=== PATIENT | female | born 1965 | race American Indian/Alaskan Native ===

== ENCOUNTER 2017-04-04 19:51 | Emergency (ER) | payer BC, OTHER ==
[~2017-04-04] VITALS: Ht 162.6 cm; Wt 96.2 kg
[~2017-04-04 19:51] MED LIST: ASPIR-LOW81 MG PO; ASPIRIN EC325 MG PO; ATORVASTATIN CA80 MG PO; CRESTOR10 MG PO; FENOFIBRATE160 MG PO; FLONASE ALLERG9.9 ML NS; GEMFIBROZIL600 MG PO; GLIPIZIDE ER10 MG PO; JANUVIA100 MG PO; KETOROLAC TROME10 MG PO; LEVOTHYROXINE150 MCG PO; LIPITOR40 MG PO; LIPITOR80 MG PO; METFORMIN HCL500 M1 PO; METFORMIN HCL500 MG PO; NALTREXONE HCL50 MG PO; NICORETTE4 M1 BUCCAL; OMEPRAZOLE20 MG PO; PRINIVIL5 MG PO; PSEUDOEPHEDRIN120 MG PO; ROSUVASTATIN CA10 MG PO; SERTRALINE HCL100 MG PO; SERTRALINE HCL50 MG PO; SYNTHROID175 MCG PO; TRAMADOL HCL50 MG PO; ULTRAM50 MG PO; ZOFRAN ODT8 MG SL; [UNRECOGNIZED DRUG - OTHER] PO
[2017-04-04] MEDS ORDERED: IMITREX25 MG PO (20:09)
--- NOTE | 2017-04-04 22:06 | EKG ---
[facility] [address] [facility] [place] [address] Signed Normal sinus rhythm Inferior infarct (cited on or before 29-MAY-2016) Abnormal ECG When compared with ECG of 29-MAY-2016 15:39, Nonspecific T wave abnormality no longer evident in Lateral leads QT has shortened Confirmed by DEWAYNE INTERIANO MD ([id number]) on 04/04/2017 10:06:21 PM Electronically Signed By: DEWAYNE INTERIANO MD 04/04/17 2206 PATIENT NAME: IDALIA THOMPSON Electrocardiogram DATE OF : 61 PHYSICIAN: DEWAYNE INTERIANO MD REPORT #: [id number] REPORT IS CONFIDENTIAL AND NOT TO BE RELEASED WITHOUT AUTHORIZATION
== END 2017-04-04 22:03 | disposition home or self-care (01) ==
LOC: ED 19:51
DX: R07.89 Other chest pain (principal); E03.9 Hypothyroidism, unspecified; E11.9 Type 2 diabetes mellitus without complications; E66.9 Obesity, unspecified; F43.10 Post-traumatic stress disorder, unspecified; Z86.73 Personal history of transient ischemic attack (TIA), and cerebral infarction without residual deficits; F17.200 Nicotine dependence, unspecified, uncomplicated; Z90.710 Acquired absence of both cervix and uterus; Z88.2 Allergy status to sulfonamides; Z88.5 Allergy status to narcotic agent; Z88.1 Allergy status to other antibiotic agents; Z88.8 Allergy status to other drugs, medicaments and biological substances; Z79.82 Long term (current) use of aspirin; Z79.899 Other long term (current) drug therapy; Z79.84 Long term (current) use of oral hypoglycemic drugs
CPT/HCPCS: 71020; 80053; 84484; 85025; 93005; 93010; 96361; 96374; 99284; J2270; J7030

== ENCOUNTER 2017-08-19 23:38 | Emergency (ER) | payer BC, OTHER ==
[~2017-08-19] VITALS: Ht 162.6 cm; Wt 82.0 kg
[~2017-08-19 23:38] MED LIST changes: +IMITREX25 MG PO
--- NOTE | 2017-08-21 14:48 | EKG ---
[facility] [address] [facility] [place], [place] [address] Signed Normal sinus rhythm Normal ECG When compared with ECG of 04-APR-2017 19:58, No significant change was found Confirmed by DEWAYNE INTERIANO MD ([id number]) on 08/21/2017 2:48:01 PM Electronically Signed By: DEWAYNE INTERIANO MD 08/21/17 1448 PATIENT NAME: IDALIA THOMPSON Electrocardiogram DATE OF : 61 PHYSICIAN: DEWAYNE INTERIANO MD REPORT #: [id number] REPORT IS CONFIDENTIAL AND NOT TO BE RELEASED WITHOUT AUTHORIZATION
== END 2017-08-20 05:20 | disposition home or self-care (01) ==
LOC: ED 23:38
DX: E11.649 Type 2 diabetes mellitus with hypoglycemia without coma (principal); E03.9 Hypothyroidism, unspecified; E66.9 Obesity, unspecified; F17.200 Nicotine dependence, unspecified, uncomplicated; Z86.73 Personal history of transient ischemic attack (TIA), and cerebral infarction without residual deficits; Z90.710 Acquired absence of both cervix and uterus; Z88.2 Allergy status to sulfonamides; Z88.5 Allergy status to narcotic agent; Z88.1 Allergy status to other antibiotic agents; Z88.8 Allergy status to other drugs, medicaments and biological substances; Z79.899 Other long term (current) drug therapy; Z79.82 Long term (current) use of aspirin; Z79.84 Long term (current) use of oral hypoglycemic drugs
CPT/HCPCS: 71045; 80053; 81001; 84484; 84703; 85025; 93005; 93010; 96374; 99284; G0480; J2310; J7030

== ENCOUNTER 2017-09-15 04:47 | Emergency (ER) | payer BC, OTHER ==
[~2017-09-15] VITALS: Ht 162.6 cm; Wt 81.7 kg
[2017-09-15] MEDS ORDERED: GLIPIZIDE XL10 MG PO (05:12)
[2017-09-15] MEDS ORDERED: SYNTHROID200 MCG PO (05:13)
[2017-09-15] MEDS ORDERED: VITAMIN B-12250 MCG PO (05:14)
== END 2017-09-15 18:25 | disposition home or self-care (01) ==
LOC: ED 04:47
DX: R45.851 Suicidal ideations (principal); E11.9 Type 2 diabetes mellitus without complications; E03.9 Hypothyroidism, unspecified; E66.9 Obesity, unspecified; F17.200 Nicotine dependence, unspecified, uncomplicated; Z86.73 Personal history of transient ischemic attack (TIA), and cerebral infarction without residual deficits; Z88.2 Allergy status to sulfonamides; Z88.5 Allergy status to narcotic agent; Z88.8 Allergy status to other drugs, medicaments and biological substances; Z88.1 Allergy status to other antibiotic agents; Z79.899 Other long term (current) drug therapy; Z79.82 Long term (current) use of aspirin; Z79.84 Long term (current) use of oral hypoglycemic drugs
CPT/HCPCS: 36415; 80053; 80176; 81001; 84443; 85025; 99284; G0480

== ENCOUNTER 2017-12-15 22:34 | Emergency (ER) | payer BC, OTHER ==
[~2017-12-15] VITALS: Ht 162.6 cm; Wt 82.0 kg
[~2017-12-15 22:34] MED LIST changes: +GLIPIZIDE XL10 MG PO; +SYNTHROID200 MCG PO; +VITAMIN B-12250 MCG PO
[2017-12-15] MEDS ORDERED: VIVITROL380 MG IM (23:01)
[2017-12-15] MEDS ORDERED: PROMETHAZINE HC25 M1 PO (23:21)
== END 2017-12-16 00:44 | disposition home or self-care (01) ==
LOC: ED 22:34
DX: K52.1 Toxic gastroenteritis and colitis (principal); T50.7X5A Adverse effect of analeptics and opioid receptor antagonists, initial encounter; E03.9 Hypothyroidism, unspecified; E11.9 Type 2 diabetes mellitus without complications; F17.200 Nicotine dependence, unspecified, uncomplicated; Z86.73 Personal history of transient ischemic attack (TIA), and cerebral infarction without residual deficits; Z88.2 Allergy status to sulfonamides; Z88.5 Allergy status to narcotic agent; Z88.1 Allergy status to other antibiotic agents; Z88.8 Allergy status to other drugs, medicaments and biological substances; Z79.899 Other long term (current) drug therapy; Z79.82 Long term (current) use of aspirin; Z79.84 Long term (current) use of oral hypoglycemic drugs
CPT/HCPCS: 96361; 96374; 99283; J2550; J7030

== ENCOUNTER 2017-12-26 17:05 | Emergency (ER) | payer BC, OTHER ==
[~2017-12-26] VITALS: Ht 162.6 cm; Wt 96.1 kg
[~2017-12-26 17:05] MED LIST changes: +PROMETHAZINE HC25 M1 PO; +VIVITROL380 MG IM
[2017-12-26] MEDS ORDERED: TESSALON PERLE100 MG PO (20:34)
== END 2017-12-26 20:50 | disposition home or self-care (01) ==
LOC: ED 17:05
DX: B34.9 Viral infection, unspecified (principal); E11.9 Type 2 diabetes mellitus without complications; E66.9 Obesity, unspecified; E03.9 Hypothyroidism, unspecified; F17.200 Nicotine dependence, unspecified, uncomplicated; Z88.2 Allergy status to sulfonamides; Z88.5 Allergy status to narcotic agent; Z88.1 Allergy status to other antibiotic agents; Z79.899 Other long term (current) drug therapy; Z88.8 Allergy status to other drugs, medicaments and biological substances; Z79.84 Long term (current) use of oral hypoglycemic drugs
CPT/HCPCS: 71046; 80053; 81001; 85025; 96374; 99283; J2550; J7030

== ENCOUNTER 2018-09-07 21:20 | Emergency (ER) | payer OTHER ==
[~2018-09-07] VITALS: Ht 162.6 cm; Wt 100.2 kg
[~2018-09-07 21:20] MED LIST changes: +TESSALON PERLE100 MG PO
--- NOTE | 2018-09-09 13:56 | EKG ---
[facility] [address] [place] [address] Signed Normal sinus rhythm Possible Inferior infarct , age undetermined Abnormal ECG When compared with ECG of 20-AUG-2017 00:00, No significant change was found Confirmed by DEWAYNE INTERIANO MD ([id number]) on 09/09/2018 1:55:56 PM Electronically Signed By: DEWAYNE INTERIANO MD 09/09/18 1356 PATIENT NAME: IDALIA THOMPSON Electrocardiogram DATE OF : 61 PHYSICIAN: DEWAYNE INTERIANO MD REPORT #: [id number] REPORT IS CONFIDENTIAL AND NOT TO BE RELEASED WITHOUT AUTHORIZATION
== END 2018-09-07 23:10 | disposition home or self-care (01) ==
LOC: ED 21:20
DX: R07.89 Other chest pain (principal); E03.9 Hypothyroidism, unspecified; E11.9 Type 2 diabetes mellitus without complications; E66.9 Obesity, unspecified; F43.10 Post-traumatic stress disorder, unspecified; Z86.73 Personal history of transient ischemic attack (TIA), and cerebral infarction without residual deficits; F17.200 Nicotine dependence, unspecified, uncomplicated; Z90.710 Acquired absence of both cervix and uterus; Z88.2 Allergy status to sulfonamides; Z88.5 Allergy status to narcotic agent; Z88.1 Allergy status to other antibiotic agents; Z88.8 Allergy status to other drugs, medicaments and biological substances
CPT/HCPCS: 71045; 80053; 84484; 85025; 93005; 93010; 99285-25; G0480

== ENCOUNTER 2020-01-04 17:22 | Emergency (ER) | payer OTHER ==
[~2020-01-04] VITALS: Ht 162.6 cm; Wt 104.7 kg
[2020-01-04] MEDS ORDERED: GLUCOPHAGE500 MG PO (17:39)
[2020-01-04] MEDS ORDERED: ZOLOFT100 MG PO (17:40)
[2020-01-04] MEDS ORDERED: TESSALON PERLE100 MG PO (18:38)
== END 2020-01-04 19:04 | disposition home or self-care (01) ==
LOC: ED 17:22
DX: U07.1 COVID-19 (principal); E03.9 Hypothyroidism, unspecified; E11.9 Type 2 diabetes mellitus without complications; F17.200 Nicotine dependence, unspecified, uncomplicated; Z88.2 Allergy status to sulfonamides; Z88.5 Allergy status to narcotic agent; Z88.1 Allergy status to other antibiotic agents; Z88.8 Allergy status to other drugs, medicaments and biological substances; Z79.899 Other long term (current) drug therapy; Z79.84 Long term (current) use of oral hypoglycemic drugs
CPT/HCPCS: 71045; 94640; 99284-25; J1100

== ENCOUNTER 2020-06-20 12:36 | Emergency (ER) | payer OTHER ==
[~2020-06-20] VITALS: Ht 162.6 cm; Wt 96.1 kg
[~2020-06-20 12:36] MED LIST changes: +GLUCOPHAGE500 MG PO; +ZOLOFT100 MG PO
[2020-06-20] MEDS ORDERED: SYNTHROID200 MCG PO (13:01)
[2020-06-20] MEDS ORDERED: JANUVIA100 MG PO (13:01)
[2020-06-20] MEDS ORDERED: SERTRALINE HCL100 MG PO (13:02)
[2020-06-20] MEDS ORDERED: LIPITOR40 MG PO (13:02)
[2020-06-20] MEDS ORDERED: FENOFIBRATE160 MG PO (13:02)
[2020-06-20] MEDS ORDERED: B12 ACTIVE1000 MCG PO (13:03)
[2020-06-20] MEDS ORDERED: VITAMIN D3125 MC2 PO (13:03)
== END 2020-06-20 16:06 | disposition home or self-care (01) ==
LOC: ED 12:36
DX: R10.9 Unspecified abdominal pain (principal); R19.7 Diarrhea, unspecified; E03.9 Hypothyroidism, unspecified; E11.9 Type 2 diabetes mellitus without complications; E66.9 Obesity, unspecified; F43.10 Post-traumatic stress disorder, unspecified; Z86.73 Personal history of transient ischemic attack (TIA), and cerebral infarction without residual deficits; F17.200 Nicotine dependence, unspecified, uncomplicated; Z88.2 Allergy status to sulfonamides; Z88.5 Allergy status to narcotic agent; Z88.1 Allergy status to other antibiotic agents; Z79.899 Other long term (current) drug therapy; Z79.84 Long term (current) use of oral hypoglycemic drugs
CPT/HCPCS: 74176; 80053; 81001; 83690; 85025; 99284-25; J7030

== ENCOUNTER 2020-09-30 18:10 | Emergency (ER) | payer OTHER ==
[~2020-09-30] VITALS: Ht 162.6 cm; Wt 96.1 kg
[~2020-09-30 18:10] MED LIST changes: +B12 ACTIVE1000 MCG PO; +VITAMIN D3125 MC2 PO
[2020-09-30] MEDS ORDERED: MAG DELAY64 M1 PO (20:57)
== END 2020-09-30 21:20 | disposition home or self-care (01) ==
LOC: ED 18:10
DX: R25.2 Cramp and spasm (principal); E83.42 Hypomagnesemia; E03.9 Hypothyroidism, unspecified; E11.9 Type 2 diabetes mellitus without complications; E66.9 Obesity, unspecified; F17.200 Nicotine dependence, unspecified, uncomplicated; Z88.2 Allergy status to sulfonamides; Z88.5 Allergy status to narcotic agent; Z88.8 Allergy status to other drugs, medicaments and biological substances; Z88.1 Allergy status to other antibiotic agents; Z79.899 Other long term (current) drug therapy; Z79.84 Long term (current) use of oral hypoglycemic drugs
CPT/HCPCS: 80053; 83735; 85025; 99283; A9270

== ENCOUNTER 2021-11-03 12:06 | Emergency (ER) | payer OTHER ==
[~2021-11-03] VITALS: Ht 162.6 cm; Wt 102.4 kg
[~2021-11-03 12:06] MED LIST changes: +MAG DELAY64 M1 PO
[2021-11-03] MEDS ORDERED: HYDROCODON-ACE1 EAC8 PO (12:52)
[2021-11-03] MEDS ORDERED: NAPROSYN500 MG PO (12:52)
== END 2021-11-03 13:29 | disposition home or self-care (01) ==
LOC: ED 12:06
DX: M25.462 Effusion, left knee (principal); E03.9 Hypothyroidism, unspecified; E11.9 Type 2 diabetes mellitus without complications; E66.9 Obesity, unspecified; F43.10 Post-traumatic stress disorder, unspecified; F17.200 Nicotine dependence, unspecified, uncomplicated; Z88.5 Allergy status to narcotic agent; Z88.1 Allergy status to other antibiotic agents; Z88.2 Allergy status to sulfonamides; Z88.8 Allergy status to other drugs, medicaments and biological substances; Z79.899 Other long term (current) drug therapy; Z79.84 Long term (current) use of oral hypoglycemic drugs
CPT/HCPCS: 20610; 73560; 87070; 87205; 99283-25; J1100

== ENCOUNTER 2021-12-09 20:14 | Emergency (ER) | payer OTHER ==
[~2021-12-09] VITALS: Ht 162.6 cm; Wt 102.4 kg
[~2021-12-09 20:14] MED LIST changes: +HYDROCODON-ACE1 EAC8 PO; +NAPROSYN500 MG PO
[2021-12-09] MEDS ORDERED: PROMETHAZINE HC25 M1 PR (23:13)
--- NOTE | 2021-12-10 13:44 | EKG ---
[facility] [address] [facility] [place] [address] Signed Normal sinus rhythm Cannot rule out Inferior infarct (cited on or before 07-SEP-2018) Possible Anterior infarct (cited on or before 07-SEP-2018) Abnormal ECG When compared with ECG of 09-DEC-2021 20:43, (Unconfirmed) No significant change was found Confirmed by DEWAYNE INTERIANO MD ([id number]) on 12/10/2021 1:44:28 PM Electronically Signed By: DEWAYNE INTERIANO MD 12/10/21 1344 PATIENT NAME: IDALIA THOMPSON Electrocardiogram DATE OF : 61 PHYSICIAN: DEWAYNE INTERIANO MD REPORT #: [id number] REPORT IS CONFIDENTIAL AND NOT TO BE RELEASED WITHOUT AUTHORIZATION
--- NOTE | 2021-12-10 13:44 | EKG ---
[facility] [address] [facility] [place] [address] Signed Normal sinus rhythm Inferior infarct , age undetermined Possible Anterior infarct , age undetermined Abnormal ECG No previous ECGs available Confirmed by DEWAYNE INTERIANO MD ([id number]) on 12/10/2021 1:44:25 PM Electronically Signed By: DEWAYNE INTERIANO MD 12/10/21 1344 PATIENT NAME: IDALIA THOMPSON Electrocardiogram DATE OF : 61 PHYSICIAN: DEWAYNE INTERIANO MD REPORT #: [id number] REPORT IS CONFIDENTIAL AND NOT TO BE RELEASED WITHOUT AUTHORIZATION
== END 2021-12-09 23:32 | disposition home or self-care (01) ==
LOC: ED 20:14
DX: R11.2 Nausea with vomiting, unspecified (principal); R53.81 Other malaise; E03.9 Hypothyroidism, unspecified; E11.9 Type 2 diabetes mellitus without complications; E66.9 Obesity, unspecified; Z86.73 Personal history of transient ischemic attack (TIA), and cerebral infarction without residual deficits; F17.200 Nicotine dependence, unspecified, uncomplicated; Z88.2 Allergy status to sulfonamides; Z88.5 Allergy status to narcotic agent; Z88.1 Allergy status to other antibiotic agents; Z79.899 Other long term (current) drug therapy; Z79.84 Long term (current) use of oral hypoglycemic drugs; Z20.822 Contact with and (suspected) exposure to COVID-19
CPT/HCPCS: 36415; 71045; 80053; 81001; 83690; 84484; 85025; 87502; 93005; 93010; 96374; 96375; 96376; 99284-25; C9803; J1170; J2405; J2550; U0003

== ENCOUNTER 2022-04-04 09:17 | Emergency (ER) | payer OTHER ==
[~2022-04-04] VITALS: Ht 162.6 cm; Wt 102.4 kg
[~2022-04-04 09:17] MED LIST changes: +PROMETHAZINE HC25 M1 PR
[2022-04-04] MEDS ORDERED: ULTRAM50 MG PO (12:21)
== END 2022-04-04 12:38 | disposition home or self-care (01) ==
LOC: ED 09:17
DX: M54.42 Lumbago with sciatica, left side (principal); E03.9 Hypothyroidism, unspecified; E11.9 Type 2 diabetes mellitus without complications; F17.200 Nicotine dependence, unspecified, uncomplicated; Z79.899 Other long term (current) drug therapy; Z88.1 Allergy status to other antibiotic agents; Z88.5 Allergy status to narcotic agent; Z88.2 Allergy status to sulfonamides; Z88.8 Allergy status to other drugs, medicaments and biological substances; Z79.84 Long term (current) use of oral hypoglycemic drugs

== ENCOUNTER 2022-04-07 11:14 | Emergency (ER) | payer OTHER ==
[~2022-04-07] VITALS: Ht 162.6 cm; Wt 102.4 kg
--- OUTSIDE RECORDS SUMMARY | 2022-04-07 11:17 | XMS ---
PreManage Notification: IDALIA THOMPSON [employer] Events No recent Security Events currently on file CRITERIA MET - [facility] - 2 Visits in 30 Days CARE PROVIDERS RACHEL RODRIGUEZ [facility] Current PHONE: [phone] Shaquille has no Care Guidelines for this patient. Rhonda VISIT COUNT (12 MO.) 4 [facility] TOTAL 4 NOTE: Visits indicate total known visits. ED/UCC VISIT TRACKING (12 MO.) 04/07/2022 11:15 [facility] [place] TYPE: Emergency COMPLAINT: - MEDICATION REACTION 04/04/2022 09:18 [facility] [place] TYPE: Emergency COMPLAINT: - L LEG PAIN DIAGNOSES: - Allergy status to other antibiotic agents - Hypothyroidism, unspecified - equipment operator intermodal yard (current) use of oral hypoglycemic drugs - Type 2 diabetes mellitus without complications - Other manager long term care (current) drug therapy - Allergy status to narcotic agent - Low back pain, unspecified - Lumbago with sciatica, left side - Allergy status to sulfonamides - Allergy status to other drugs, medicaments and biological substances - Nicotine dependence, unspecified, uncomplicated 12/09/2021 20:15 [facility] [place] TYPE: Emergency COMPLAINT: - FEVER,NAUSEA,VOMTIING DIAGNOSES: - Weakness - Nausea with vomiting, unspecified - Type 2 diabetes mellitus without complications - group home (current) use of oral hypoglycemic drugs - Allergy status to narcotic agent - Obesity, unspecified - Nicotine dependence, unspecified, uncomplicated - Contact with and (suspected) exposure to COVID-19 - Allergy status to sulfonamides - Other manager long term care (current) drug therapy - Other malaise - Personal history of transient ischemic attack (TIA), and cerebral infarction without residual deficits - Allergy status to other antibiotic agents - Hypothyroidism, unspecified 11/03/2021 12:07 [facility] [place] TYPE: Emergency COMPLAINT: - L KNEE PAIN DIAGNOSES: - equipment operator intermodal yard (current) use of oral hypoglycemic drugs - Allergy status to other drugs, medicaments and biological substances - Hypothyroidism, unspecified - Effusion, left knee - Nicotine dependence, unspecified, uncomplicated - Allergy status to narcotic agent - Post-traumatic stress disorder, unspecified - Type 2 diabetes mellitus without complications - Other manager long term care (current) drug therapy - Allergy status to other antibiotic agents - Allergy status to sulfonamides - Obesity, unspecified INPATIENT VISIT TRACKING (12 MO.) No inpatient visits to display in this time frame [email or web address]
[2022-04-07] MEDS ORDERED: OZEMPIC0.25 MG/0. SUB-Q (11:28)
[2022-04-07] MEDS ORDERED: PROMETHAZINE HC25 M1 PO (15:06)
== END 2022-04-07 15:18 | disposition home or self-care (01) ==
LOC: ED 11:14
DX: K52.9 Noninfective gastroenteritis and colitis, unspecified (principal); T38.3X5A Adverse effect of insulin and oral hypoglycemic [antidiabetic] drugs, initial encounter; F17.200 Nicotine dependence, unspecified, uncomplicated; E03.9 Hypothyroidism, unspecified; E11.9 Type 2 diabetes mellitus without complications; E66.9 Obesity, unspecified; Z68.38 Body mass index [BMI] 38.0-38.9, adult; Z88.2 Allergy status to sulfonamides; Z88.5 Allergy status to narcotic agent; Z88.8 Allergy status to other drugs, medicaments and biological substances
CPT/HCPCS: 36415; 80053; 83735; 85025; 96361; 96365; 96366; 96375; 99284-25; J1200; J2550; J3475; J7030

== ENCOUNTER 2022-10-06 16:04 | Emergency (ER) | payer OTHER ==
[~2022-10-06] VITALS: Ht 162.6 cm; Wt 102.4 kg
[~2022-10-06 16:04] MED LIST changes: -GLUCOPHAGE500 MG PO; +OZEMPIC0.25 MG/0. SUB-Q
[2022-10-06] MEDS ORDERED: VITAMIN B-121000 MCG PO (18:11)
[2022-10-06] MEDS ORDERED: TERBINAFINE HC250 MG PO (18:15)
[2022-10-06] MEDS ORDERED: MULTI VITAMIN1 EACH PO (18:15)
--- NOTE | 2022-10-06 20:08 | EKG ---
[facility] [address] [facility] [place] [address] Signed Normal sinus rhythm Cannot rule out Inferior infarct (cited on or before 07-SEP-2018) Abnormal ECG When compared with ECG of 09-DEC-2021 22:40, Nonspecific T wave abnormality no longer evident in Lateral leads Confirmed by Mili Castle MD () on 10/06/2022 8:08:21 PM Electronically Signed By: MILI CASTLE MD 10/06/222007 PATIENT NAME: IDALIA THOMPSON Electrocardiogram DATE OF : 61 PHYSICIAN: MILI CASTLE MD REPORT #: [id number] REPORT IS CONFIDENTIAL AND NOT TO BE RELEASED WITHOUT AUTHORIZATION
== END 2022-10-06 20:35 | disposition short-term general hospital (02) ==
LOC: ED 16:04
DX: I63.9 Cerebral infarction, unspecified (principal); G83.11 Monoplegia of lower limb affecting right dominant side; R29.810 Facial weakness; R29.701 NIHSS score 1; Z20.822 Contact with and (suspected) exposure to COVID-19; E03.9 Hypothyroidism, unspecified; E11.9 Type 2 diabetes mellitus without complications; J30.9 Allergic rhinitis, unspecified; E88.81 Metabolic syndrome and other insulin resistance; E66.9 Obesity, unspecified; F43.10 Post-traumatic stress disorder, unspecified; E78.1 Pure hyperglyceridemia; Z88.2 Allergy status to sulfonamides; Z88.5 Allergy status to narcotic agent; Z79.899 Other long term (current) drug therapy; Z79.84 Long term (current) use of oral hypoglycemic drugs; Z87.891 Personal history of nicotine dependence
CPT/HCPCS: 36415; 70450; 70496; 70498; 80053; 84484; 85025; 85060; 87502; 93005; 93010; 99285-25; A9270; C9803; J3101; Q9967; U0003

== ENCOUNTER 2022-11-06 15:06 | Observation (INO) | payer BC, OTHER ==
[~2022-11-06] VITALS: Ht 162.6 cm; Wt 89.3 kg
[~2022-11-06 15:06] MED LIST changes: +MULTI VITAMIN1 EACH PO; +TERBINAFINE HC250 MG PO; +VITAMIN B-121000 MCG PO
[2022-11-06] MEDS ORDERED: JANUVIA100 MG PO (15:12)
[2022-11-06 17:36] VITALS: BP 116/68
--- NOTE | 2022-11-06 17:37 | NUR ---
PATIENT ARRIVES WITH Iraida CHAVEZ RN/ NURSE INSPECTOR TYPE VIA STRETCHER FROM ED TO ROOM 113 FOR ADMISSION TO ACUTE CARE. PATIENT ASSESSMENT COMPLETED, VITALS OBTAINED.
--- NOTE | 2022-11-06 19:25 | NUR ---
REPORT RECEIVED FROM DAY SHIFT RN. PT LYING IN BED ALERT AND ORIENTED. DENIES NEEDS. WHITE BOARD UPDATED. CALL LIGHT IN REACH.
[2022-11-06 21:28] VITALS: BP 107/66
--- NOTE | 2022-11-06 21:40 | NUR ---
EVENING ASSESSMENT COMPLETE. BS WNL. SS INSULIN HELD. PT DENIES PAIN OR NAUSEA. NEURO CHECK COMPLETE. PT DENIES DIZZINESS OR VISUAL DISTURBANCES. BELT SANDER STRENGTH EQUAL BILAT. SLIGHT LEFT SIDE FACIAL DROOP PT REPORTS IS FROM PREVIOUS STROKE. TELE #[address] NSR[address] HR 70'S. EVENING SNACK PROVIDED. PT DENIES QUESTIONS OR CONCERNS. CALL LIGHT IN REACH. BED ALARM FOR SAFETY.
--- NOTE | 2022-11-06 23:35 | NUR ---
PT RESTING IN BED WITH EYES CLOSED LYING ON RIGHT SIDE. RESPIRATIONS EVEN. CALL LIGHT IN REACH.
[2022-11-07 01:44] VITALS: BP 110/65
--- NOTE | 2022-11-07 01:54 | NUR ---
VS AND I&O COMPLETE. NEURO ASSESSMENT UNCHAGED. UP TO BR WITH MINIMAL SBA TO VOID. GAIT STEADY. BACK TO BED, ERLINDA WELL. DENIES NEEDS. CALL LIGHT IN REACH.
--- NOTE | 2022-11-07 03:48 | NUR ---
PT RESTING IN BED WITH EYES CLOSED. RESPIRATIONS EVEN. CALL LIGHT IN REACH.
[2022-11-07 06:15] VITALS: BP 115/67
--- NOTE | 2022-11-07 06:34 | NUR ---
PT RESTING IN BED WITH EYES CLOSED. AWAKENS EASILY. VS AND I&O OBTAINED. PT DENIES PAIN OR NAUSEA. NEURO CHECK UNCHANGED. SCHEDULED MEDS ADMIN PER EMAR. NO FURTHER NEEDS. CALL LIGHT IN REACH.
--- NOTE | 2022-11-07 06:43 | NUR ---
PATIENT OFF FLOOR TO MRI
--- NOTE | 2022-11-07 07:20 | NUR ---
REPORT FROM Virginia CAMACHO RN. PATIENT RESTING IN BED ON LEFT SIDE. RESPIRATIONS EVEN AND UNLABORED. ALLOWED TO REST AT THIS TIME. CALL LIGHT IN REACH, BED RAILS UP X2. HEATING OPERATORS ENGINEER IN PLACE.
--- NOTE | 2022-11-07 08:17 | NUR ---
LEFT KULDIP HALE TO SCHEDULE FU
--- NOTE | 2022-11-07 08:18 | NUR ---
RE-PLACED LEADS ON TELE AFTER MRI. PT STATED SHE WAS "SLEEPY AND WANT TO REST" SO VITALS/I&O'S TAKEN & DOCUMENTED. PT LAYING ON R SIDE W/COVERS. CALL LIGHT IN REACH. NO OTHER REQUESTS AT THIS TIME.
[2022-11-07 08:19] VITALS: BP 106/65
[2022-11-07] MEDS ORDERED: ASPIRIN81 MG PO (09:26)
[2022-11-07 09:58] VITALS: BP 126/61
[2022-11-07] MEDS ORDERED: PRILOSEC OTC20 MG PO (10:07)
[2022-11-07] MEDS ORDERED: OZEMPIC1 MG/0.71 SUB-Q (10:07)
--- NOTE | 2022-11-08 07:14 | EKG ---
[facility] [address] [facility] [place] [address] Signed Normal sinus rhythm Possible Inferior infarct (cited on or before 07-SEP-2018) Abnormal ECG When compared with ECG of 06-OCT-2022 16:54, Nonspecific T wave abnormality now evident in Lateral leads Confirmed by ASIF BREWER MD ([id number]) on 11/08/2022 7:13:40 AM Electronically Signed By: ASIF BREWER MD 11/08/22 0714 PATIENT NAME: IDALIA THOMPSON Electrocardiogram DATE OF : 61 PHYSICIAN: ASIF BREWER MD REPORT #: [id number] REPORT IS CONFIDENTIAL AND NOT TO BE RELEASED WITHOUT AUTHORIZATION
== END 2022-11-07 10:15 | disposition home or self-care (01) ==
LOC: ED 15:06 → MS 16:57
PROVIDERS: ADMIT Internal Medicine; ATTEND Internal Medicine
DX: R51.9 Headache, unspecified (principal); H53.149 Visual discomfort, unspecified; I69.392 Facial weakness following cerebral infarction; E03.9 Hypothyroidism, unspecified; Z68.33 Body mass index [BMI] 33.0-33.9, adult; J30.9 Allergic rhinitis, unspecified; E11.9 Type 2 diabetes mellitus without complications; E88.81 Metabolic syndrome and other insulin resistance; E66.9 Obesity, unspecified; F43.10 Post-traumatic stress disorder, unspecified; E78.1 Pure hyperglyceridemia; Z79.899 Other long term (current) drug therapy; Z79.84 Long term (current) use of oral hypoglycemic drugs; Z87.891 Personal history of nicotine dependence
CPT/HCPCS: 36415; 70450; 70496; 70498; 70551; 71045; 80048; 80053; 80061; 84484; 85025; 85610; 85730; 93005; 93010; 99285-25; G0378; J1790; Q9967

== ENCOUNTER 2023-09-06 10:30 | Emergency (ER) | payer BC, OTHER ==
[~2023-09-06] VITALS: Ht 162.6 cm; Wt 94.8 kg
[~2023-09-06 10:30] MED LIST changes: +ASPIRIN81 MG PO; +OZEMPIC1 MG/0.71 SUB-Q; +PRILOSEC OTC20 MG PO
[2023-09-06 10:50] LABS: BASOPHILS 0.4 % (0-2); EOSINOPHILS 1.9 % (0-6); HEMATOCRIT 42.5 % (35.0-50.0); HEMOGLOBIN 14.1 g/dL (12.0-18.0); LYMPHOCYTES 9.9 % (24-44); MCH 26.8 (27-36); MCHC 33.3 g/dl (30-36); MCV 80.5 fl (81-99); MONOCYTES 2.2 % (0-12); NEUTROPHILS 85.6 % (39-80); RBC 5.27 M/ul (4.3-5.7); RDW 13.8 (10.5-15.0)
[2023-09-06 11:08] LABS: ALBUMIN 3.7 g/dL (3.4-5.0); ALBUMIN/GLOBULIN RATIO 0.84 (1.1-2.4); ANION GAP 14.6 (7-21); BILIRUBIN, TOTAL 0.6 ng/dL (0.2-1.0); BUN/CREATININE RATIO 15.73 (6.0-28.6); CALCIUM 9.7 mg/dL (8.5-10.1); CREATININE, SERUM 0.89 mg/dL (0.55-1.02); POTASSIUM 4.6 mmol/L (3.5-5.1); PROTEIN, TOTAL 8.1 g/dL (6.4-8.2)
[2023-09-06] MEDS ORDERED: ACETAMINOPHEN 500 MG TAB ONE (11:45)
[2023-09-06] MEDS ORDERED: ACETAMINOPHEN 500 MG TAB PO ONE (11:45)
[2023-09-06 12:07] LABS: ERYTHROCYTE SEDIMENTATION RATE 12
[2023-09-06 12:42] VITALS: BP 127/82
== END 2023-09-06 12:42 | disposition home or self-care (01) ==
LOC: ED 10:30
PROVIDERS: Emergency Medicine
DX: R51.9 Headache, unspecified (principal); R29.810 Facial weakness; E03.9 Hypothyroidism, unspecified; E11.9 Type 2 diabetes mellitus without complications; Z68.35 Body mass index [BMI] 35.0-35.9, adult; E66.9 Obesity, unspecified; E78.1 Pure hyperglyceridemia; F43.10 Post-traumatic stress disorder, unspecified; Z86.73 Personal history of transient ischemic attack (TIA), and cerebral infarction without residual deficits; F17.200 Nicotine dependence, unspecified, uncomplicated; Z79.84 Long term (current) use of oral hypoglycemic drugs; Z79.899 Other long term (current) drug therapy; Z79.82 Long term (current) use of aspirin; Z88.1 Allergy status to other antibiotic agents; Z88.2 Allergy status to sulfonamides; Z88.5 Allergy status to narcotic agent; Z88.8 Allergy status to other drugs, medicaments and biological substances
CPT/HCPCS: 36415; 70551; 80053; 85025; 85060; 85651; 99284; A9270

== ENCOUNTER 2023-12-29 18:58 | Emergency (ER) | payer BC ==
[~2023-12-29] VITALS: Ht 162.6 cm; Wt 96.0 kg
[2023-12-29] MEDS ORDERED: METOCLOPRAMIDE HCL 10 MG/2 ML SDV IV ONE (20:00)
[2023-12-29] MEDS ORDERED: LACTATED RINGER'S 1,000 ML IV ONE (20:00)
[2023-12-29 20:03] LABS: BASOPHILS 0.6 % (0-2); EOSINOPHILS 2.7 % (0-6); HEMATOCRIT 42.7 % (35.0-50.0); HEMOGLOBIN 14.3 g/dL (12.0-18.0); LYMPHOCYTES 23.4 % (24-44); MCH 26.8 (27-36); MCHC 33.5 g/dl (30-36); MONOCYTES 5.6 % (0-12); NEUTROPHILS 67.7 % (39-80); PLATELET COUNT 328 K/uL (140-440); RBC 5.33 M/ul (4.3-5.7); RDW 14.1 (10.5-15.0)
[2023-12-29 20:20] LABS: ALBUMIN 4.2 g/dL (3.4-5.0); ANION GAP 14.7 (7-21); BILIRUBIN, TOTAL 0.9 ng/dL (0.2-1.0); BUN/CREATININE RATIO 16.48 (6.0-28.6); CALCIUM 9.2 mg/dL (8.5-10.1); CREATININE, SERUM 0.91 mg/dL (0.55-1.02); POTASSIUM 3.7 mmol/L (3.5-5.1); PROTEIN, TOTAL 8.4 g/dL (6.4-8.2)
[2023-12-29] MEDS ORDERED: REGLAN10 MG PO (20:45)
[2023-12-29] MEDS ORDERED: PROMETHAZINE HCL 25 MG HOME.PACK PO ONE (21:00)
[2023-12-29 21:10] VITALS: BP 130/75
== END 2023-12-29 21:10 | disposition home or self-care (01) ==
LOC: ED 18:58
PROVIDERS: Family Medicine
DX: R11.2 Nausea with vomiting, unspecified (principal); R19.7 Diarrhea, unspecified; T50.995A Adverse effect of other drugs, medicaments and biological substances, initial encounter; E11.9 Type 2 diabetes mellitus without complications; E03.9 Hypothyroidism, unspecified; E66.9 Obesity, unspecified; F17.200 Nicotine dependence, unspecified, uncomplicated; Z68.36 Body mass index [BMI] 36.0-36.9, adult; Z79.84 Long term (current) use of oral hypoglycemic drugs; Z79.82 Long term (current) use of aspirin; Z79.890 Hormone replacement therapy; Z79.899 Other long term (current) drug therapy; Z88.2 Allergy status to sulfonamides; Z88.5 Allergy status to narcotic agent; Z88.8 Allergy status to other drugs, medicaments and biological substances; Z88.1 Allergy status to other antibiotic agents
CPT/HCPCS: 36415; 80053; 85025; 96374; 99284-25; J2765; J7121

== ENCOUNTER 2024-11-13 20:02 | Emergency (ER) | payer BC ==
[~2024-11-13] VITALS: Ht 162.6 cm; Wt 93.0 kg
[~2024-11-13 20:02] MED LIST changes: +REGLAN10 MG PO
[2024-11-13 20:29] LABS: BASOPHILS 0.6 % (0-2); EOSINOPHILS 2.8 % (0-6); HEMOGLOBIN 13.6 g/dL (12.0-18.0); LYMPHOCYTES 22.5 % (24-44); MCH 27.1 (27-36); MCHC 33.9 g/dl (30-36); MCV 79.9 fl (81-99); MONOCYTES 4.7 % (0-12); NEUTROPHILS 69.4 % (39-80); PLATELET COUNT 296 K/uL (140-440)
[2024-11-13] MEDS ORDERED: KETOROLAC TROMETHAMINE 15 MG/ML VIAL IV ONE (20:30)
[2024-11-13] MEDS ORDERED: DIPHENOXYLATE/ATROPINE 1 EA TAB PO ONE (20:30)
[2024-11-13] MEDS ORDERED: LACTATED RINGER'S 1,000 ML IV ONE ×2 (20:30→22:15)
[2024-11-13] MEDS ORDERED: PROCHLORPERAZINE EDISYLATE 10 MG/2 ML VIAL IV ONE (20:30)
[2024-11-13] MEDS ORDERED: IBUPROFEN600 MG PO (20:43)
[2024-11-13] MEDS ORDERED: TRULICITY1.5 MG/0.5 SQ (20:43)
[2024-11-13 20:52] LABS: ALBUMIN 3.6 g/dL (3.4-5.0); ALBUMIN/GLOBULIN RATIO 0.95 (1.1-2.4); ANION GAP 12.5 (7-21); BILIRUBIN, TOTAL 0.5 mg/dL (0.2-1.0); BUN/CREATININE RATIO 17.72 (6.0-28.6); CALCIUM 8.6 mg/dL (8.5-10.1); CREATININE, SERUM 0.79 mg/dL (0.55-1.02); MAGNESIUM 1.1 mg/dL (1.8-2.4); POTASSIUM 3.5 mmol/L (3.5-5.1); PROTEIN, TOTAL 7.4 g/dL (6.4-8.2)
[2024-11-13] MEDS ORDERED: MAGNESIUM SULFATE 2 GM/50 ML BAG IV ONE (21:30)
[2024-11-13] MEDS ORDERED: MAGNESIUM OXID400 M1 PO (22:39)
[2024-11-13] MEDS ORDERED: PROMETHAZINE HC25 M1 PO (22:39)
[2024-11-13] MEDS ORDERED: LOMOTIL TABLET1 EACH PO (22:39)
[2024-11-13] MEDS ORDERED: PROMETHAZINE HCL 25 MG SUPP. HOME.PACK PR ONE (22:45)
[2024-11-13] MEDS ORDERED: PROMETHAZINE HCL 25 MG HOME.PACK PO ONE (22:45)
[2024-11-13 23:20] VITALS: BP 151/79
== END 2024-11-13 23:20 | disposition home or self-care (01) ==
LOC: ED 20:02
PROVIDERS: Family Medicine
DX: K52.9 Noninfective gastroenteritis and colitis, unspecified (principal); F43.10 Post-traumatic stress disorder, unspecified; F17.200 Nicotine dependence, unspecified, uncomplicated; Z88.2 Allergy status to sulfonamides; Z88.5 Allergy status to narcotic agent
CPT/HCPCS: 36415; 51798; 80053; 83735; 85025; 96361; 96374; 96375; 99284-25; J0780; J1885; J3475; J7121

== ENCOUNTER 2025-05-19 07:27 | Day surgery (SDC) | payer BC ==
[~2025-05-19] VITALS: Ht 162.6 cm; Wt 95.4 kg
--- NOTE | ~2025-05-19 | OR ---
[facility] [address] [place], [place] [address] Draft DATE OF OPERATION: 05/19/2025 SURGEON: Jimena Williamson MD PREOPERATIVE DIAGNOSIS: Colon screening. POSTOPERATIVE DIAGNOSIS: Diverticulosis of sigmoid in left colon. PROCEDURE: Total colonoscopy to cecum. ANESTHESIA: Intravenous sedation, fentanyl 150 mcg, Versed 6 mg. INDICATION: This 59-year-old Maur[place] woman is a patient of Dr. Atwood at [facility]. She is here for a screening colonoscopy. She last underwent colonoscopy [address] Kiran Lima, which was said to be negative. She has no current symptoms of bleeding, diarrhea, or constipation and no family history of colon cancer. She understands the risk of bleeding, infection, and perforation related to colonoscopy and wished to proceed. FINDINGS: The prep was good. Complete colonoscopy was undertaken of the cecum with good visualization of the appendiceal orifice. She had numerous diverticula of the sigmoid and left colon, but no polyps or colitis. DESCRIPTION OF PROCEDURE: The patient was brought to the endoscopy suite and placed in lateral decubitus position, given intravenous sedation to the point of slurred speech and nystagmus. Digital rectal examination was normal. Full cardiopulmonary monitoring was maintained. An Olympus video colonoscope was passed in the rectum and manipulated throughout the colon ultimately intubating the cecum itself. The ileocecal valve and appendiceal orifice were normal. The scope was withdrawn from that point. Examination throughout showed no sign of abnormality other than numerous diverticula of the left colon and sigmoid. Retroflexed view of the rectum was normal. The scope was removed. The patient was taken to the recovery room in good condition. PATIENT NAME: IDALIA THOMPSON OPERATIVE REPORT DATE OF : 61 REPORT #: [id number] PHYSICIAN: JIMENA WILLIAMSON MD PCP: KARLA ATWOOD MD REPORT IS CONFIDENTIAL AND NOT TO BE RELEASED WITHOUT AUTHORIZATION [facility] [address] [place] [id number] Draft CONCLUDING DIAGNOSIS: Diverticulosis. PLAN: Recommend repeat colonoscopy in 10 years, sooner if symptoms should develop. Also high- fiber diet is recommended. She will return to the ongoing care of Dr. Atwood at [facility]. MD KIM Camarillo/MODL /[id number] cc: Dr. Atwood Copies: ~ PATIENT NAME: IDALIA THOMPSON OPERATIVE REPORT DATE OF : 61 REPORT #: [id number] PHYSICIAN: JIMENA WILLIAMSON MD PCP: KARLA ATWOOD MD REPORT IS CONFIDENTIAL AND NOT TO BE RELEASED WITHOUT AUTHORIZATION
[~2025-05-19 07:27] MED LIST changes: +IBLOOD GLUCOSE TEST STRIP 1 EA TEST VI PRN; +IBUPROFEN600 MG PO; +LACTATED RINGER'S 1,000 ML IV SCH; +LIDOCAINE HCL 1% 5 ML SDV INJ ONE; +LOMOTIL TABLET1 EACH PO; +MAGNESIUM OXID400 M1 PO; +MIDAZOLAM HCL 5 MG/5 ML VIAL IV PRN; +TRULICITY1.5 MG/0.5 SQ; +fentaNYL citrate 100 MCG/2 ML VIAL IV PRN
[2025-05-19 07:40] VITALS: BP 142/76
[2025-05-19] MEDS ORDERED: MIDAZOLAM HCL 5 MG/5 ML VIAL ONE (08:19)
[2025-05-19] MEDS ORDERED: fentaNYL citrate 100 MCG/2 ML VIAL ONE (08:20)
--- NOTE | 2025-05-19 09:33 | NUR ---
05/19/25 0933 Martha Allen 0905 PT ARRIVED IN PACU SLEEPY. ABD SOFT AND PASSING FLATUS. 0920 DR AT BEDSIDE. ALL QUESTIONS ANSWERED. FELL BACK TO SLEEP WHEN NOT STIMULATED. 0933 RESTING. REU.
[2025-05-19 09:56] VITALS: BP 120/76
== END 2025-05-19 10:03 | disposition home or self-care (01) ==
LOC: OPS 07:27 → DS 07:27 → OPS 08:30 → DS 13:00
PROVIDERS: ATTEND Surgery
PROC: 0DJD8ZZ Inspection of Lower Intestinal Tract, Via Natural or Artificial Opening Endoscopic (ICD-10-PCS; principal; 2025-05-19 08:30)
DX: Z12.11 Encounter for screening for malignant neoplasm of colon (principal); K57.30 Diverticulosis of large intestine without perforation or abscess without bleeding; E78.5 Hyperlipidemia, unspecified; E03.9 Hypothyroidism, unspecified; E11.9 Type 2 diabetes mellitus without complications; Z88.5 Allergy status to narcotic agent; Z88.8 Allergy status to other drugs, medicaments and biological substances; Z88.1 Allergy status to other antibiotic agents
CPT/HCPCS: 99153; G0500; J2250; J3010; J7121